=== PATIENT | male | born 1960 | race Caucasian/White ===

== ENCOUNTER → 2017-06-19 | Outpatient (CLI) | payer BC, OTHER ==
[~2017-06-19] MED LIST: ALL180 PO; MULT-506 PO; OMEG10007 PO; [UNRECOGNIZED DRUG - CODE]
== END | disposition home or self-care (01) ==
LOC: C.RDSM 08:12
PROVIDERS: ATTEND Orthopaedic Surgery
DX: M25.561 Pain in right knee (principal)

== ENCOUNTER → 2017-06-26 | Outpatient (CLI) | payer BC ==
--- NOTE | 2017-06-26 23:44 | DIAGNOSTIC IMAGING REPORT ---
R LOWER EXT JOINT WITHOUT CLINICAL HISTORY: 57 years-old Male with RIGHT KNEE PAIN. Chronic right knee pain with history of prior knee surgery. Concern for meniscal tear COMPARISON: Right knee radiographs 06/19/2017 TECHNIQUE: Multiplanar, multisequence MRI of the right knee was performed without intravenous contrast. FINDINGS: Micro metallic artifact is noted adjacent to the lateral tibial plateau which limits the dilation of the adjacent structures. MENISCI: The medial meniscus is irregular and diminutive in size. Linear area of increased T2 signal of the medial meniscal body seen on image 22 series 10 is compatible with tear, likely a vertical longitudinal tear. Additional vertical tear is seen within the posterior junction medial meniscus, image 21 series 10. Medial meniscal fragment is noted within the medial aspect of the intercondylar notch nicely seen on image 20 series 4 and image 16 series 10 anterior to the PCL. There is increased signal of the posterior horn lateral meniscus suggesting meniscal degeneration without discrete lateral meniscal tear identified. Evaluation however is limited secondary to adjacent artifact as previously described. CRUCIATE LIGAMENTS: Mucoid degeneration of the anterior cruciate ligament without tear. Ganglion is noted adjacent to the proximal femoral fibers of the ACL measuring 1.9 x 1.0 x 1.4 cm nicely seen on image 13 series 11 and image 14 series 10. Posterior cruciate ligament also demonstrates mucoid degeneration however is intact. COLLATERAL LIGAMENTS: The popliteus tendon, biceps femoris tendon, fibular collateral ligament and iliotibial band are intact. The superficial and deep components of the medial collateral ligament are intact. EXTENSOR MECHANISM: The quadriceps and patellar tendons are intact.The medial and lateral patellar retinacula are intact. KNEE JOINT: Small to moderate joint effusion with synovitis. 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 Mild joint space narrowing with low-grade chondral loss involves the lateral compartment. Intermediate chondral loss involves the posterior weightbearing portion of the lateral femoral condyle with mild underlying subcortical edema. Mild to moderate changes of the patellofemoral joint. High-grade chondral fissuring involves the patellar apex and medial aspect of the lateral patellar facet. No intra-articular loose body. BONE MARROW: The bone marrow signal is age appropriate. No fracture, or marrow replacing process. SOFT TISSUES: Forde's cyst is noted, 3.1 x 0.7 x 5.4 cm. IMPRESSION: 1. Tricompartmental degenerative changes about the knee as above, most pronounced within the medial compartment where there is moderate disease with areas of intermediate and high-grade chondromalacia with mild subcortical cystic change and edema. 2. Multifocal tearing of the medial meniscus as above with displaced meniscal fragment within the medial aspect of the intertubercular groove. 3. Mild micrometallic artifact adjacent to the lateral tibial plateau limits evaluation of the adjacent structures including the lateral meniscus. Lateral meniscal degeneration without discrete lateral meniscal tear identified. 4. [id number] knee joint effusion with synovitis. 5. 1.9 cm ganglion noted adjacent to the proximal insertional fibers of the anterior cruciate ligament. The above report was generated using voice recognition software. It may contain grammatical, syntax or spelling errors. Electronically signed by: Miller Cameron M.D. 06/26/2017 11:42 PM Dictated Date/Time: 06/26/2017 11:27 PM
== END | disposition home or self-care (01) ==
LOC: C.MRI 21:03
PROVIDERS: ATTEND Orthopaedic Surgery
DX: M25.561 Pain in right knee (principal); M17.11 Unilateral primary osteoarthritis, right knee